=== PATIENT | male | born 1965 | race Caucasian/White ===

== ENCOUNTER 2017-12-01 06:10 | Day surgery (SDC) | payer OTHER ==
[~2017-12-01] VITALS: Ht 177.8 cm; Wt 78.0 kg
[2017-12-01 06:52] VITALS: BP 143/99; PULSE 92; RESP 20; TEMP 97.7; O2SAT 97
[2017-12-01] MEDS ORDERED: SODIUM CHLORIDE 0.9% 1000 ML IV SCH (07:00)
[2017-12-01] MEDS ORDERED: VANCOMYCIN 1000 MG/NS 250 ML - implanted port/tunneled catheter IV SCH ×2 (07:00)
[2017-12-01 07:11] LABS: AUTOMATED NEUTROPHIL # 4.9 TH/MM3 (1.8-7.7); BASOPHIL % 0.7 % (0.0-2.0); EOSINOPHIL # 0.2 TH/MM3 (0-0.4); EOSINOPHIL % 2.6 % (0.0-4.0); HEMATOCRIT 48.6 % (39.0-51.0); HEMOGLOBIN 16.5 GM/DL (13.0-17.0); LYMPH % 10.3 % (9.0-44.0); LYMPHOCYTE # 0.7 TH/MM3 (1.0-4.8); MEAN CELL VOLUME 93.2 FL (80.0-100.0); MEAN CORPUSCULAR HEMOGLOBIN 31.7 PG (27.0-34.0); MEAN PLATELET VOLUME 6.7 FL (7.0-11.0); MONO % 11.4 % (0.0-8.0); MONOCYTE # 0.7 TH/MM3 (0-0.9); PLATELET COUNT 245 TH/MM3 (150-450); RED BLOOD COUNT 5.21 MIL/MM3 (4.50-5.90); RED CELL DISTRIBUTION WIDTH 14.7 % (11.6-17.2); WHITE BLOOD COUNT 6.5 TH/MM3 (4.0-11.0)
[2017-12-01] MEDS ORDERED: MIDAZOLAM HCL 2 MG/2 ML VIAL ONE ×2 (08:21→08:51)
[2017-12-01] MEDS ORDERED: LIDOCAINE 1%/EPINEPHrine 1:100,000 SOLN 30 ML VIAL ONE (08:33)
--- NOTE | 2017-12-01 09:17 | PD.RAD ---
Post Procedure Progress Note Pre Procedure Diagnosis: (1) Lymphoma Post Procedure Diagnosis: (1) Lymphoma Procedure Date: December 01, 2017 Supervising Radiologist: Moustapha Bose Proceduralist/Assist: Davey Epperson, RT(R), Sonia Portillo RT(R) Anesthesia: Local, Analgesia, Conscious Sedation Plan of Activity Patient to Unit: ROPU Patient Condition: Good See PACS Report for procedural detail/treatment Central Venous Access Device Procedure 1 Right Internal Jugular Infusaport Removal single lumen [place]: 8 Moustapha Bose MD December 01, 2017 09:17
[2017-12-01 09:20] VITALS: BP 112/72; PULSE 75; RESP 18; TEMP 97.7; O2SAT 90
[2017-12-01 09:35] VITALS: BP 119/64; PULSE 85; RESP 18; O2SAT 96
[2017-12-01 10:05] VITALS: BP 123/80; PULSE 86; RESP 18; O2SAT 96
[2017-12-01 10:35] VITALS: BP 103/60; PULSE 79; RESP 18; O2SAT 96
--- NOTE | 2017-12-01 13:41 | RADRPT ---
EXAM DATE/TIME: 12/01/2017 07:17 [facility] COMPARISON: No previous studies available for comparison. INDICATIONS : Patient with history of lymphoma in need of Ihemg-e-Bxom removal. MEDICAL HISTORY : Anemia, Low grade B cell lymphoma, Central retinal vein occlusion SURGICAL HISTORY : Hernia repair, Left wrist surgery, Bone marrow aspirate and biopsy ENCOUNTER: Subsequent ACUITY: > 1 year PAIN SCORE: 0/10 SEDATION TIME: 15 minutes 1.) 4 mg midazolam (Versed) IV 2.) 100 mcg fentanyl (Sublimaze) IV Prophylactic antibiotics were administered with appropriate pre-procedure timing. Vancomycin within 2 hrs of procedure, Ancef (or alternative) within 1 hr of procedure. PROCEDURE : 1. Removal of Pfgrwq-n-svtl. 2. Conscious sedation with continuous EKG and oximetry monitoring. The risk, benefits and potential complications of Zwpdrk-r-Waiw removal were discussed. Written conse nt was obtained. The patient was placed supine. The chest wall was prepped in sterile fashion. Full sterile techniqu e was used, including cap, mask, sterile gloves and gown, and a large sterile sheet. Hand hygiene an d 2% chlorhexidine and/or Betadine/alcohol prep was utilized per protocol for cutaneous antisepsis. The skin and subcutaneous tissues were infiltrated with local anesthetic solution. A small incision w as made, the subcutaneous pocket was opened. The port was dissected from the subcutaneous tissues and easily removed in one piece. The pocket incision was closed with subcuticular Vicryl suture. Steri -Strips were applied. Conscious sedation was performed with the prescribed dosages and duration as above in the presence of an independent trained radiology nurse to assist in the monitoring of the patient. EKG and oximetry remained stable throughout the procedure. The patient tolerated the procedure well and there were no complications. The patient was sent to post anesthesia recovery in stable condition. CONCLUSION: Uncomplicated port removal as above. Moustapha Bose MD on December 01, 2017 at 13:39 Board Certified Radiologist. This report was verified electronically.
== END 2017-12-01 11:11 | disposition home or self-care (01) ==
LOC: HROP 06:10 → HRIP 06:14 → HROP 11:11
PROVIDERS: ATTEND Internal Medicine Hematology & Oncology
DX: Z45.2 Encounter for adjustment and management of vascular access device (principal); C85.90 Non-Hodgkin lymphoma, unspecified, unspecified site; I10 Essential (primary) hypertension
CPT/HCPCS: 36590; 85025; 85610; 85730; 99152; J2250; J3010